=== PATIENT | male | born 1995 | race Caucasian/White ===

== ENCOUNTER 2021-06-19 19:13 | Emergency (ER) | payer OTHER ==
--- NOTE | 2021-06-19 20:11 | XRAY Report ---
PROCEDURE: Wrist 3 View LT INDICATIONS: injury from lifting son, c/o pain TECHNIQUE: 3 views of the wrist were acquired. COMPARISON: None. FINDINGS: Bones: No fractures or dislocations. No suspicious bony lesions. Soft tissues: No suspicious soft tissue calcifications. IMPRESSION: No fracture. If the patient's pain or other symptoms persist, consider further evaluation with MRI. Reviewed by: Hubert Rizo MD on 06/19/2021 8:09 PM PDT Approved by: Hubert Rizo MD on 06/19/2021 8:09 PM PDT Station ID: [id number]
--- NOTE | 2021-06-19 20:30 | ED Physician Documentation ---
PD HPI UPPER EXT INJURY - Stated complaint Stated Complaint: L WRIST INJ - Chief complaint Chief Complaint: Trauma Ext - History obtained from History obtained from: Patient - History of Present Illness Location: Left, Wrist Where injury occurred: Home Timing - onset: How many days ago (2) Timing - duration: Days (2) Timing - details: Gradual onset Pain level max: 7 Pain level now: 6 Improved by: Rest, Ice Worsened by: Moving, Palpating Associated symptoms: No: Weakness, Numbness, Tingling, Swelling - Additonal information Additional information: 26-year-old male, right-handed, presents stating he injured his left wrist 2 days ago when lifting up his child. He complains of pain on the volar aspect of the wrist, worse with movement and better with rest. Does not recall any other injuries. No falls. No swelling. No numbness or tingling. Review of Systems Constitutional: denies: Fever GI: denies: Vomiting Skin: denies: Rash Musculoskeletal: denies: Neck pain, Back pain Neurologic: denies: Headache PD PAST MEDICAL HISTORY - Past Medical History Past Medical History: No - Past Surgical History Past Surgical History: No - Present Medications Home Medications: Ambulatory Orders Medication Instructions Recorded Confirmed No Known Home Medications 06/19/21 06/19/21 - Allergies Allergies/Adverse Reactions: Allergies Allergy/AdvReac Type Severity Reaction Status Date / Time avocado Allergy Respiratory Verified 06/19/21 19:24 - Social History Does the pt smoke?: No Smoking Status: Never smoker Does the pt drink ETOH?: No Does the pt have substance abuse?: No - Immunizations Immunizations are current?: Yes PD ED PE NORMAL - Vitals Vital signs reviewed: Yes - General General: Alert and oriented X 3, No acute distress - Derm Derm: Warm and dry - Extremities Extremities: Other (Tender to palpation over the volar aspect of the left wrist. Most of the pain is with extension of the hand, feels better with flexion. Neurovascular intact. No deformity. ) - Neuro Neuro: Alert and oriented X 3 - Psych Psych: Normal mood, Normal affect Results - Vitals Vitals: Vital Signs - 24 hr 06/19/21 06/19/21 19:15 20:39 Temperature 36.1 C L Heart Rate 47 L 46 L Respiratory 18 14 Rate Blood Pressure 152/77 H 140/74 H O2 Saturation 99 100 Oxygen O2 Source Room air - Rads (name of study) L wrist xray Radiology: Final report received, EMP read contemporaneously, See rad report (No acute abnormality) PD MEDICAL DECISION MAKING - ED course Complexity details: reviewed results, considered differential, d/w patient ED course: 26-year-old male with a left wrist sprain. No evidence of gouty arthritis, septic joint, fracture, dislocation. Placed a Velcro splint for comfort. Patient counseled regarding signs and symptoms for which I believe and urgent re-evaluation would be necessary. Patient with good understanding of and agreement to plan and is comfortable going home at this time This document was made in part using voice recognition software. While efforts are made to proofread this document, sound alike and grammatical errors may occur. Departure - Departure Disposition: 01 Home, Self Care Clinical Impression: Unspecified sprain of left wrist, initial encounter Condition: Good Instructions: ED Sprain Wrist Follow-Up: your,doctor in 1 week [Other] Comments: Your x-ray does not show any acute abnormalities today. We will place you in a Velcro splint to help with any discomfort. You should wear this for the next week. Continue to gently move your wrist. Follow-up with your doctor in 1 week for repeat evaluation. Return if you worsen. You can use Motrin and/or Tylenol as needed for pain. Discharge Date/Time: 06/19/21 20:40
[2021-06-19 20:40] VITALS: BP 140/74
== END 2021-06-19 20:40 | disposition home or self-care (01) ==
LOC: ED 19:13
DX: S63.502A Unspecified sprain of left wrist, initial encounter (principal); X50.0XXA Overexertion from strenuous movement or load, initial encounter; Y92.009 Unspecified place in unspecified non-institutional (private) residence as the place of occurrence of the external cause
CPT/HCPCS: 99282; 99283

== ENCOUNTER 2022-01-25 11:07 | Outpatient (CLI) | payer OTHER ==
[2022-01-25 12:08] VITALS: BP 132/72
--- NOTE | 2022-01-25 12:08 | SLEEP CARE CONSULTATION ---
Information from patient questionnaire entered by Juliet Burch MA. I have reviewed and concur with the information entered by Juliet Burch MA. This document represents the service I personally performed and the decisions made by me, Rhonda Calderon ARNP. History of Present Illness Service Date and Time: 01/25/2022 1107 Reason for Visit: New patient (onset 01/3019, no priors) Chief Complaint: reports: Unrefreshed sleep, Snoring, Excessive daytime sleepiness, Observed pauses in breathing, Fatigue, Other Date of Onset: 7-8 years Usual bedtime: 11 PM Time it takes to fall asleep: 10 MINUTES Snores at night: Yes Observed to quit breathing while asleep: Yes Sleeps alone due to snoring: No Number of times waking at night: 0 Reasons for waking at night: reports: Gasping for air (once in last year or two; has not heard gaspin or choking), Other (only when wakes him up to turn over). denies: Choking, Snoring Toss, Turn, or Twitch while sleeping: Yes Recalls having dreams: No Usually gets out of bed at: 0600; weekends [id number] Feels refreshed in the morning: No Morning headache: No Sleepy or fatigued during the day: Yes Ever fallen asleep while driving: No Takes day naps: Yes (once a month; feels like he could nap every day) Dreams during day naps: No Prior sleep studies: No Additional HPI information: I had the pleasure of seeing BALAJI ALVES today regarding the possibility of him having a sleep disorder. His current complaints are unrefreshed sleep, fatigue, observed pauses in breathing, snoring and excessive daytime sleepiness. His will wake him up and he turns on side which does reduce his snoring. - Parasomnia Symptoms Ever been unable to move upon waking from sleep: No Walks in sleep: No Talks in sleep: No Ever acted out dreams in sleep: No Ever felt weak in the knees when startled or emotional: No Bothered by creepy, crawly, restless sensations in legs: No Problems with memory or concentration: Yes (both, memory is the worst) Subjective Initial [place] Sleepiness Scale score: 5 (01/2022) Social History The patient's occupation is a AM. Patient is and lives in [place]. Have you smoked in the past 12 months: No Alcohol use: Yes Alcohol amount and frequency: 1-2 drinks OCCASIONALLY Caffeine use: Yes Caffeine amount and frequency: 2 cups coffee DAILY Family History Family history of sleep disordered breathing: Yes Family Hx Sleep Apnea: Mother: Snoring, Sleep apnea - Untreated, Father: Snoring, Grandparent: Sleep apnea - Treated Allergies and Home Medications Drug allergies reviewed: Yes (NKDA) Home medication list reviewed: Yes (no daily medications) Allergy and home medication list: Allergies avocado Allergy (Verified 06/19/21 19:24) Respiratory Review of Systems Weight gain over past 5 years: 20 pounds Cardiovascular: reports: palpitations (uncommon, no known reason) Ear/Nose/Throat: reports: wisdom teeth removed. denies: tonsillectomy Immunologic: reports: allergies to food or environment ([place]) Physical Exam Vital signs obtained and entered by: PRISCILA FRANCES Blood Pressure: 132/72 ( LEFT, PULSE 60, RESP 16, ) Cuff size: wrist Heart Rate: 62 O2 Saturation: 98 (CLOTH) Height: 6 ft 6 in Weight: 225 lb (PT CLOTHES) Body Mass Index: 25.9 BMI Classification: Overweight Neck circumference: 16 (INCHES) Mouth and throat: normal Soft palate: long Hard palate: normal Uvula: normal Uvula visualization: 100% Mallampati Class I Tongue: enlarged in size with teeth curtis on lateral edges Tonsils: small Neck: normal w/o lymphadenopathy or thyromegaly Heart: regular rate and rhythm Lungs: clear bilaterally Impression and Plan 1. Suspected Obstructive Sleep Apnea-Hypopnea Syndrome, as suggested by a history of loud and irregular snoring, observed cessation of breath while asleep, unrefreshed sleep, cognitive impairment, and excessive daytime sleepiness. Narrow oropharynx and obesity are common predisposing factors for obstructive sleep apnea-hypopnea syndrome. I recommend proceeding to isabel ysomnography to confirm the diagnosis and to assess severity. If the patient has significant sleep disordered breathing, a manual CPAP titration study will also be performed to find the optimal treatment pressure. I informed the patient of what the sleep studies involve and after some discussion, obtained agreement to proceed. The pathophysiology of obstructive sleep apnea-hypopnea syndrome was di scussed with the patient and health risks of cardiovascular and cerebrovascular disease if not treated. Risks of drowsy driving discussed in detail and patient advised to avoid long distance driving and to side puller at the first sign of drowsiness. Patient agreed to plan. * Schedule polysomnography +- manual CPAP titration study and return in 1-2 weeks after the study to discuss results. * Avoid long distance driving or driving when feeling sleepy. * Avoid alcohol, sedative and muscle relaxant around bedtime. * Attempt to lose weight. * Review instructions provided by trained office staff on how to prepare for the sleep study. * Return for follow-up after sleep study completed. Counseling Topics: Weight loss health impact Time Spent with Patient (minutes): 31
== END 2022-01-25 11:08 | disposition home or self-care (01) ==
LOC: SC 11:07
PROVIDERS: ATTEND Nurse Practitioner Family
DX: R06.83 Snoring (principal); G47.8 Other sleep disorders; R06.81 Apnea, not elsewhere classified; G47.10 Hypersomnia, unspecified; R53.83 Other fatigue; E66.3 Overweight; Z68.25 Body mass index [BMI] 25.0-25.9, adult
CPT/HCPCS: 99203; 99212

== ENCOUNTER 2022-01-30 15:00 | Outpatient (CLI) | payer OTHER | END 2022-01-30 15:01 | disposition home or self-care (01) | LOC: SC 15:00 | PROVIDERS: ATTEND Nurse Practitioner Family | DX: R09.02 Hypoxemia (principal) | CPT/HCPCS: 95806 ==

== ENCOUNTER 2024-03-17 18:55 | Emergency (ER) | payer OTHER ==
--- NOTE | 2024-03-17 21:32 | XRAY Report ---
PROCEDURE: Chest 2V INDICATIONS: chest pain TECHNIQUE: 2 views of the chest were acquired. COMPARISON: None. FINDINGS: Surgical changes and devices: None. Lungs and pleura: No pleural effusions or pneumothorax. Lungs are clear. Mediastinum: Mediastinal contours appear normal. Heart size is normal. Bones and chest wall: No suspicious bony lesions. Overlying soft tissues appear unremarkable. IMPRESSION: No acute cardiopulmonary process. Reviewed by: Charles Herman MD on 03/17/2024 9:31 PM PDT Approved by: Charles Herman MD on 03/17/2024 9:31 PM PDT Station ID: [id number]
--- NOTE | 2024-03-17 22:16 | ED Physician Documentation ---
PD HPI CHEST PAIN - Stated complaint Stated Complaint: CHEST PX - Chief complaint Chief Complaint: Cardiac - History obtained from History obtained from: Patient - Additional information Additional information: The patient comes to the emergency department chief complaint of pain in his parasternal area. He states it has been going on for few days and seems to hurt worse if he reaches forward or bends over. No shortness of breath or nausea. Does not hurt with deep breaths. He states he does work out. Patient states he is otherwise healthy. He notes has no personal or family history of coronary artery disease. He is not a smoker. No other complaints at this time. PD PAST MEDICAL HISTORY - Past Medical History Past Medical History: No - Past Surgical History Past Surgical History: No - Present Medications Home Medications: Ambulatory Orders Medication Instructions Recorded Confirmed No Known Home Medications 06/19/21 06/19/21 - Allergies Allergies/Adverse Reactions: Allergies Allergy/AdvReac Type Severity Reaction Status Date / Time avocado Allergy Respiratory Verified 03/17/24 19:00 - Social History Does the pt smoke?: No Smoking Status: Never smoker Does the pt drink ETOH?: No Does the pt have substance abuse?: No - Immunizations Immunizations are current?: Yes PD ED PE NORMAL - Vitals Vital signs reviewed: Yes - General General: Alert and oriented X 3, No acute distress, Well developed/nourished, Other (The patient appears mildly anxious but otherwise no apparent distress.) - HEENT HEENT: Atraumatic, EOMI, Moist mucous membranes - Neck Neck: Supple, no meningeal sign - Cardiac Cardiac: RRR, No murmur, Strong equal pulses - Respiratory Respiratory: No respiratory distress, Clear bilaterally - Abdomen Abdomen: Soft, Non tender, Non distended - Derm Derm: Normal color, Warm and dry, No rash - Extremities Extremities: No deformity, No edema, No calf tenderness / cord - Neuro Neuro: Alert and oriented X 3, Other (Grossly intact) - Psych Psych: Normal mood, Normal affect Results - Vitals Vitals: Oxygen O2 Source Room air - EKG (time done) 1905 EKG releavant findings:: EKG personally interpreted by author of this note. Relevant findings are: Rate: Rate (enter#) (49) Rhythm: Sinus bradycardia [place]: Normal Intervals: Normal RI QRS: Normal Ischemia: Normal ST segments Compare to prior EKG: Old EKG unavailable Computer interpretation: Agree with computer - Labs Labs: Laboratory Tests 03/17/24 21:33 Troponin I High Sens 5.1 PD Medical Decision Making - ED course Complexity details: reviewed results, re-evaluated patient, considered differential, d/w patient ED course: EKG and high-sensitivity troponin were obtained from triage and both were unremarkable. I discussed with the patient that he is very low risk for coronary artery disease/heart attack. The way that his pain changes with posi tion indicates more likely a chest wall/musculoskeletal source. We have discussed the need for follow-up with his primary doctor, as well as usual indications for return. Departure - Departure Disposition: Home, Self Care Clinical Impression: Chest wall pain Condition: Stable Instructions: ED Chest Pain Costochondritis Comments: Your cardiac enzymes, which were measured in your blood, look good. Your EKG, other than showing a slightly slow heart rate, is completely normal. Your chest x-ray also looks great. As we discussed, you are very low risk for the really emergent potential causes of chest pain and as such, an emergent condition is highly unlikely. Additionally, your vital signs are reassuring and your physical exam is as well. Given that it hurts more when you bend over, it is most likely that You have a musculoskeletal source of your pain. This is also consistent with a very specific focus of pain you have been noticing. Please follow-up with your primary care physician for reevaluation of your recurrent chest pain over the last 6 months. No emergent condition has been identified tonight. Forms: PCP List Discharge Date/Time: 03/17/24 22:19
[2024-03-17 22:20] VITALS: BP 133/91; O2SAT 98
== END 2024-03-17 22:19 | disposition home or self-care (01) ==
LOC: ED 18:55
DX: R07.89 Other chest pain (principal)
CPT/HCPCS: 36415; 84484; 93005; 99284